=== PATIENT | female | born 1980 | race Caucasian/White ===

== ENCOUNTER 2016-12-20 05:15 | Inpatient (IN) | payer OTHER ==
--- NOTE | 2016-12-09 13:02 | GHP ---
[f rep st] PREOP HISTORY AND PHYSICAL DATE OF ADMISSION: 12/20/2016 SURGERY TO BE PERFORMED: Repeat lower transverse section. Scheduled date is er 2016, at 7:15 a.m. PREOPERATIVE DIAGNOSIS: Intrauterine at 39 weeks gestation with a history of lower transve rse section secondary to suspected macrosomia. Desires repeat section. HISTORY OF PRESENT ILLNESS: The patient is a 36-year-old, 4, para 2-0-0-1, with a last menst rual period of 03/21/2016 and an EDC of 12/26/2016. She has had good care at [facility] since the 1st trimester, registration at 9 weeks . She has a short interval. H er last baby was born in August of 2015 by section, a viable male, weight 8 pounds 10 ounces, elective section secondary to suspected macrosomia. That baby weighed 8 pounds 10 ounces. Because of the short interval between the section and this delivery, as well as the renu gerardo's choice, she desires a repeat lower transverse section for the delivery of this baby. Her EDC is 12/26/2016. We scheduled it at 39 weeks. Other risk factors include an increa sing BMI. The patient's most recent weight is 301 pounds. Her pre- weight was 283. The renu geradro also has had possible Zika exposure. She has extensive international travel for her job into [facility]. She had negative serum testing and normal ultrasounds. Most recent ultrasound, becaus e of the suspected macrosomia and the Zika, was December 01, 2016. At that point, baby was estimated to be 2775 g (or 36 percentile), normal anatomy, and LUZ was 17. PAST OBSTETRICAL HISTORY: Only the previously mentioned delivery in August of 2015, a viable male, 8 p ounds 10 ounces, elective primary for suspected macrosomia. PAST GYNECOLOGICAL HISTORY: She has normal menses, had menarche at age 17, interval every 30 days, r egular cycles. She was nursing when she conceived this baby. No history of abnormal Paps or STDs or any gynecological problems. PAST MEDICAL HISTORY: Significant for elevated BMI. PAST SURGICAL HISTORY: [place] tooth extraction, , and PE tubes as a child. ALLERGIES: She has no known drug allergies MEDICATIONS: Include vitamins, DHEA and folic acid. LABORATORY DATA: She is A positive, antibody negative, RPR nonreactive, rubella immune, hepatitis ne gative, HIV negative. Cystic fibrosis, SMA, fragile X negative. Verifi normal. Gonorrhea and chlam ydia negative. Pap normal. AFP normal. 1-hour GTT 116. GBS is negative. SOCIAL HISTORY: She is . She lives with her and her son. 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 She denies tobacco, alcohol, and drug use. FAMILY HISTORY: Paternal grandfather and maternal uncle have heart disease. Father has had a valve replacement. Maternal grandmother with chronic hypertension. Paternal grandmother had a stroke. Pa ternal uncle had brain cancer. Paternal grandfather had liver and lung cancer. That is all that is significant. REVIEW OF SYSTEMS: Negative 10-point review of systems, except for normal symptoms as abov e. OBJECTIVE: VITAL SIGNS: Blood pressure is 112/66, weight is 301 pounds. She has had an 18 pounds w eight gain in this . GENERAL: She is a well-developed, obese, white female in no acute dis tress. LUNGS: Clear to auscultation bilaterally. HEART: Regular rate and rhythm. No murmur. ABD OMEN: Gravid. Fundal height is 38. heart tones are 130s. PELVIS: Cervical exam is closed, 50%, and high. EXTREMITIES: Trace edema. Negative Homans sign. ASSESSMENT AND PLAN: A 36-year-old 2, para 1-0-0-1, who will be 39 weeks gestation on 2016, desires a repeat lower transverse section for delivery due to short interv al and patient choice. The patient was consented for the procedure today. She understood the risks and benefits, the risks including bleeding, infection, damage to internal organs, uterus, tubes, ovar ies, bowel, bladder, nerves, blood vessels, ureters, risk of injury, risk of hemorrhage requiri ng blood transfusion, hysterectomy, or . She understood these risks and benefits and agreed to proceed. /[id number]/MODL
[2016-12-20] MEDS ORDERED: CITRIC ACID/SODIUM CITRATE 30 ML UDCUP PO ONE ×2 (05:54→07:30)
[2016-12-20] MEDS ORDERED: ceFAZolin 2 GM/DEXTROSE 100 ML IV ONE ×2 (05:54→08:00)
[2016-12-20] MEDS ORDERED: LR 500 ML IV ONE ×2 (05:54→07:30)
[2016-12-20] MEDS ORDERED: TERBUTALINE SULFATE 1 MG/ML VIAL ONE (06:03)
[2016-12-20] MEDS ORDERED: MISOPROSTOL 200 MCG TAB ONE (06:03)
[2016-12-20] MEDS ORDERED: OXYTOCIN 10 UNIT/ML VIAL ONE (06:03)
[2016-12-20 06:09] LABS: PLATELET COUNT 186 10^3/uL (150-400)
[2016-12-20] MEDS: LR 1,000 ML IV SCH ×2 (06:15→14:06)
[2016-12-20] MEDS ORDERED: ceFAZolin 2 GM/SWFI 2 GM/20 ML SYR IVP ONE (07:30)
--- NOTE | 2016-12-20 07:31 | PREANESOB ---
Obstetric Pre-Anesthesia Info - General Info Proposed Procedure: Repeat C Section. : 2 Para: 1 ADRYAN: 12/26/16 Gestational Age: 39 week(s) and 1 day(s) - Info Status: Full Term Monitors: External FHR Baseline (bpm): 130 FHR Pattern: Reassuring - Labor Status Indications for Current Section: Elective/Repeat Labor Epidural: No Anesthesia ROS: Prior spinal for C Section. Prior general anesthesia for ear tubes as a child. Allergies/Adverse Reactions: Allergy/AdvReac Type Severity Reaction Status Date / Time No Known Allergies Allergy Verified 02/16/16 10:45 Home Medications: Medication Instructions Recorded AZITHROMYCIN [Z-PACK] 500 mg PO DAILY #1 packet 02/16/16 Ipratropium 0.06% Nasal [Atrovent 2 sprays EACHNARE QID #1 mdi 02/16/16 0.06% Nasal] Vitamin Tablet 1 tab PO DAILY 12/20/16 Visit Medications: Generic Name Dose Route Start Last Admin Trade Name Freq PRN Reason Stop Dose Admin Citric Acid/Sodium Citrate 30 ml 12/20/16 07:30 Bicitra PO 12/20/16 07:31 ONCE ONE Lactated Ringer's 1,000 mls @ 125 mls/hr 12/20/16 06:00 Lr IV 06/18/17 05:59 CONT JANNETH Cefazolin Sodium 2 gm in 20 mls @ 200 mls/hr 12/20/16 07:30 Cefazolin Syringe IVP 12/20/16 07:35 ONCALL ONE Lactated Ringer's 500 mls @ 0 mls/hr 12/20/16 07:30 Lactated Ringers IV 12/20/16 07:31 ONCE ONE As Directed Discontinued Medications Generic Name Dose Route Start Last Admin Trade Name Freq PRN Reason Stop Dose Admin Citric Acid/Sodium Citrate 30 ml 12/20/16 05:54 Bicitra PO 12/20/16 05:55 ONCALL ONE Ephedrine Sulfate Confirm 12/20/16 06:03 Ephedrine Sulfate Administered 12/20/16 06:04 Dose 50 mg .ROUTE .STK-MED ONE Cefazolin Sodium/Dextrose 100 mls @ 200 mls/hr 12/20/16 05:54 Ancef 2 Gm (Premix) IV 12/20/16 06:23 ONCALL ONE Protocol Lactated Ringer's 500 mls @ 0 mls/hr 12/20/16 05:54 Lr IV 12/20/16 05:55 ONCE ONE As Directed Misoprostol Confirm 12/20/16 06:03 Cytotec Administered 12/20/16 06:04 Dose 1,000 mcg .ROUTE .STK-MED ONE Oxytocin Confirm 12/20/16 06:03 Pitocin Administered 12/20/16 06:04 Dose 40 unit .ROUTE .STK-MED ONE Terbutaline Sulfate Confirm 12/20/16 06:03 Brethine Administered 12/20/16 06:04 Dose 1 mg .ROUTE .STK-MED ONE - Anesthesia History Response to Local Anesthetics: Normal Anesthesia & Operative History: No Prior Problems Family Anesthesia History: Negative - Social History Substance Use/Abuse: Denies - Vital Signs Blood Pressure: 106/86 Heart Rate: 98 Respiratory Rate: 18 Height/Weight (Nursing): Height 175.26 cm Weight 137.438 kg - Focused Exam Neck exam: FROM Mouth exam: normal dental/mouth exam Pulmonary: no respiratory distress Cardiovascular: regular rate and rhythym Labs: 12/20/16 06:00 Patient ABO/Rh A POSITIVE 12/20/16 06:00 - Plan Anesthetic Plan: SAB Consent Signed and on Chart: Yes Patient/Guardian Understands and Agrees to Plan: Yes
[2016-12-20] MEDS ORDERED: morphINE PF 5 MG/10 ML INJ ONE (07:40)
[2016-12-20] MEDS ORDERED: PHENYLEPHRINE HCL 100 MCG/ML SYR ONE (07:41)
[2016-12-20] MEDS ORDERED: OXYTOCIN 100 UNITS/10 ML VIAL ONE (07:41)
[2016-12-20] MEDS ORDERED: fentaNYL 100 MCG/2 ML INJ ONE (07:41)
[2016-12-20] MEDS ORDERED: DEXAMETHASONE 4 MG/ML VIAL ONE ×2 (07:41→08:47)
[2016-12-20] MEDS ORDERED: ONDANSETRON 4 MG/2 ML VIAL ONE ×2 (08:47)
[2016-12-20] MEDS ORDERED: ACETAMINOPHEN 325 MG TAB PO PRN (09:29)
[2016-12-20] MEDS ORDERED: SIMETHICONE 80 MG TAB CHEW PO PRN (09:29)
[2016-12-20] MEDS ORDERED: PROMETHAZINE HCL 25 MG/ML INJ IVP PRN (09:29)
[2016-12-20] MEDS ORDERED: DOCUSATE SODIUM 100 MG CAP PO PRN (09:29)
[2016-12-20] MEDS ORDERED: LACTULOSE 20 GM/30 ML UDCUP PO PRN (09:31)
[2016-12-20] MEDS ORDERED: MAGNESIUM HYDROXIDE 30 ML UDCUP PO PRN (09:31)
[2016-12-20] MEDS ORDERED: BISACODYL 10 MG SUPP PR PRN (09:31)
[2016-12-20] MEDS ORDERED: POLYETHYLENE GLYCOL 3350 17 GM PKT PO PRN (09:31)
--- NOTE | 2016-12-20 09:35 | OBDEL ---
Info Type: Repeat Presentation at Delivery: Vertex L&D Analgesia/Anesthesia Type: Spinal GBS+: No Intrapartum Medications: Generic Name Dose Route Start Last Admin Trade Name Freq PRN Reason Stop Dose Admin Lactated Ringer's 1,000 mls @ 125 mls/hr 12/20/16 06:00 12/20/16 06:15 Lr IV 06/18/17 05:59 1,000 mls CONT JANNETH Administration Discontinued Medications Generic Name Dose Route Start Last Admin Trade Name Freq PRN Reason Stop Dose Admin Citric Acid/Sodium Citrate 30 ml 12/20/16 05:54 12/20/16 07:41 Bicitra PO 12/20/16 05:55 Not Given ONCALL ONE Cefazolin Sodium/Dextrose 100 mls @ 200 mls/hr 12/20/16 05:54 12/20/16 07:40 Ancef 2 Gm (Premix) IV 12/20/16 06:23 100 mls ONCALL ONE Administration Protocol - Care Provider Manufacturing Mechanic/ADVERTISING ASSISTANT MANAGER: Chelsi Resendez Indications for Delivery: Elective Operative Report - Delivery Pre-op Diagnoses: IUP @ 39 weeks with history of LTCS desires repeat Post-op Diagnoses: same History of Prior Section: Yes Number of Prior Sections: 1 Nulliparous Prior to Delivery: No Indications for Prior Section: Other (Specify) (suspected macrosomia) Indications for Current Section: Elective/Repeat Procedure: Scheduled Surgeon: Aarti Almaguer Vegetable Worker: Shelbi Pina Anesthesiologist: Alejandro Dangelo Complications: None Findings: normal uterus, tubes and ovaries IV Fluid (ml): 3,300 EBL: 800 Data Burdick Delivery Date: 12/20/16 Delivery Time: 08:32 ADRYAN: 12/26/16 Gestational Age: 39 week(s) and 1 day(s) Sex of Infant: Female [place] Weight (gm): 3005.049 g Score (1 Min): 8 Score (5 Min): 8 ICD10 Worksheet Patient Problems: Problems Problem Status Onset delivery delivered Acute Morbid obesity Acute
--- NOTE | 2016-12-20 09:35 | OBDEL ---
Info Type: Repeat Presentation at Delivery: Vertex L&D Analgesia/Anesthesia Type: Spinal GBS+: No Intrapartum Medications: Generic Name Dose Route Start Last Admin Trade Name Freq PRN Reason Stop Dose Admin Lactated Ringer's 1,000 mls @ 125 mls/hr 12/20/16 06:00 12/20/16 06:15 Lr IV 06/18/17 05:59 1,000 mls CONT JANNETH Administration Discontinued Medications Generic Name Dose Route Start Last Admin Trade Name Freq PRN Reason Stop Dose Admin Citric Acid/Sodium Citrate 30 ml 12/20/16 05:54 12/20/16 07:41 Bicitra PO 12/20/16 05:55 Not Given ONCALL ONE Cefazolin Sodium/Dextrose 100 mls @ 200 mls/hr 12/20/16 05:54 12/20/16 07:40 Ancef 2 Gm (Premix) IV 12/20/16 06:23 100 mls ONCALL ONE Administration Protocol - Care Provider Environmental Health Nurse/MACHINE OPERATOR ASSISTANT: Chelsi Resendez Indications for Delivery: Elective Operative Report - Delivery Pre-op Diagnoses: IUP @ 39 weeks with history of LTCS desires repeat Post-op Diagnoses: same History of Prior Section: Yes Number of Prior Sections: 1 Nulliparous Prior to Delivery: No Indications for Prior Section: Other (Specify) (suspected macrosomia) Indications for Current Section: Elective/Repeat Procedure: Scheduled Surgeon: Aarti Almaguer Mma Fighter: Shelbi Pina Anesthesiologist: Alejandro Dangelo Complications: None Findings: normal uterus, tubes and ovaries IV Fluid (ml): 3,300 EBL: 800 Data Burdick Delivery Date: 12/20/16 Delivery Time: 08:32 ADRYAN: 12/26/16 Gestational Age: 39 week(s) and 1 day(s) Sex of Infant: Female [place] Weight (gm): 3005.049 g Score (1 Min): 8 Score (5 Min): 8 ICD10 Worksheet Patient Problems: Problems Problem Status Onset delivery delivered Acute Morbid obesity Acute
[2016-12-20] MEDS ORDERED: ONDANSETRON 4 MG/2 ML VIAL IVP PRN (09:36)
[2016-12-20] MEDS ORDERED: NALOXONE HCL 0.4 MG/ML INJ IVP PRN (09:36)
[2016-12-20] MEDS ORDERED: PHENYLEPHRINE HCL 100 MCG/ML SYR IVP PRN (09:36)
--- NOTE | 2016-12-20 09:36 | POSTANESTH ---
Post Anesthetic Evaluation Cardiovascular Status: Normal, Stable, Similar to Pre-Op Cond Respiratory Status: Normal, Stable, Similar to Pre-op Cond. Level of Consciousness/Mental Status: Can Participate in Eval, Alert and Oriented Pain Control: Adequate, Prn Tx Ordered Nausea/Vomiting Control: Adequate, Prn Tx Ordered Complications Possibly Related to Anesthesia: None Noted
[2016-12-20] MEDS ORDERED: SCOPOLAMINE HYDROBROMIDE 1 MG/3 DAYS PATCH TD ONE (09:39)
--- NOTE | 2016-12-20 11:44 | GOP ---
[f rep st] OPERATIVE REPORT DATE OF OPERATION: 12/20/2016 SURGEON: Aarti Almaguer MD APPRENTICESHIP CONSULTANT: Shelbi Pina CNM. Betina Su [facility]. ANESTHESIA: Spinal anesthesia. ANESTHESIOLOGIST: Alejandro Dangelo MD PREOPERATIVE DIAGNOSIS: Intrauterine at 39 weeks' gestation with a history of prior low tr ansverse section; desires repeat. POSTOPERATIVE DIAGNOSIS: Intrauterine at 39 weeks' gestation with a history of prior low t ransverse section; desires repeat. PROCEDURE PERFORMED: Repeat lower transverse section. FINDINGS: Viable female, 's of 8 and 8, weight of 6 pounds 10 ounces. ESTIMATED BLOOD LOSS: (For the procedure) 800 cc. DESCRIPTION OF PROCEDURE: Patient was taken to the operating room where she was given spinal anesthe natan without difficulty. She was prepped and draped in the dorsal supine position with a leftward til t, and a Suresh catheter was placed in her bladder. After adequate anesthesia was assured, a transver se skin incision was made in the previous scar, and the incision was carried down to the un derlying layer of fascia. Fascia was incised in the midline. Fascial incision was extended laterall y with Calhoun scissors. Superior aspect of the fascial incision was grasped with Brandy clamps and silva vated, and the rectus muscles were dissected off sharply. Inferior aspect of the fascial incision wa s grasped with Brandy clamps and elevated, and the rectus muscles were dissected off sharply. Rectus muscles were in the midline. Peritoneum was entered bluntly. Peritoneal incision was ext ended superiorly and inferiorly with good visualization of bladder. Bladder blade was inserted. The vesicouterine peritoneum was grasped with the pickups and entered sharply with Metzenbaum scissors. The incision was extended laterally, and a bladder flap was created digitally. The uterus was incis ed with a knife, and the incision was extended laterally with bandage scissors. There was clear amni otic fluid upon entry to the amniotic sac. The baby was delivered atraumatically. The mouth and nos e were bulb suctioned. We delayed cord clamping for 1 minute, and the cord was then clamped and cut. The was handed off to the waiting nurse practitioners. Cord bloods were sent. The placenta was removed manually. The uterus was exteriorized and cleared of all clots and debris. Th e uterine incision was repaired with 0 Vicryl in a running locked fashion. A second imbricating laye r of suture was performed with 0 Vicryl. There were small areas of bleeding which were made hemostat ic with [id number] sutures of 0 Vicryl, and good hemostasis was assured. The uterus was returne d to the abdomen. Gutters were cleared of all clots and debris. Reinspection of the uterine incisio n revealed small areas of oozing along the bladder flap, and these were cauterized and we used Abida for assured hemostasis in that area. The rectus muscles were then approximated with 2-0 Vicryl in a n inverted mattress fashion. The fascia was closed with #1 Vicryl in a running fashion. Subcutaneou s layer was closed with 2-0 Vicryl, and skin was closed with 4-0 Vicryl. Patient tolerated the proce dure well. Sponge, lap, needle, and instrument counts were correct x2. Patient went to the recovery room in good condition. INDICATIONS FOR PROCEDURE: The patient is a 36-year-old 4, para 1-0-0-1, who is at 39 weeks' gestation on 12/20/2016, with an EDC of 12/26/2016. She had a history of lower transverse section with G1 secondary to suspected macrosomia, and she decided she desires a repeat lower transve rse section due to short interval; that baby was born in August 2015, and this is less t palomino 18 months from that delivery. Patient is concerned about possible increased risk of a uterine ru pture with spontaneous labor and elected to have a section. She was consented for the proce dure. She understood the risks and benefits: The risks including bleeding, infection, damage to int ernal organs (uterus, tubes, ovaries, bowel, bladder, nerves, blood vessels, ureters), risk of injury, risk of hemorrhage requiring blood transfusion, hysterectomy, or . She understood these risks and benefits and agreed to proceed. IV FLUIDS: 3300 cc. URINE OUTPUT: 300 cc. /[id number]/MODL
[2016-12-20] MEDS: KETOROLAC 30 MG/1 ML SDV IVP PRN ×2 (12:28→18:21)
[2016-12-21] MEDS: KETOROLAC 30 MG/1 ML SDV IVP PRN ×2 (00:05→05:50)
[2016-12-21] MEDS: SENNOSIDES/DOCUSATE SODIUM TAB PO SCH ×3 (00:05→19:36)
[2016-12-21] MEDS ORDERED: PATCH REMOVAL 1 EA PATCH TD ONE (09:40)
--- NOTE | 2016-12-21 13:09 | OBPP ---
Progress Note Assessment/Plan: Assessment: 36 yo POD#1 s/p RCD. Doing OK. Plan: 1. Routine Post-op care. 2. Encourage ambulation. Up to shower. 3. Post-op anemia: start PO iron supplementation. 12/21/16 13:05 Subjective/ Course: 12/21/16 13:07 Patient feels good. Pain is well-controlled with PO medication. She is ambulating to BR. She is voiding spontaneously. She reports moderate lochia. She is without difficulty. 12/21/16 13:10 Admits to passing flatus this AM Objective: 12/21/16 06:00 Patient ABO/Rh A POSITIVE 12/20/16 06:00 Temp Pulse Resp BP Pulse Ox 37.0 C 77 20 100/62 98 12/21/16 08:00 12/21/16 08:00 12/21/16 06:15 12/21/16 08:00 12/21/16 08:00 General: NAD Lungs: clear in all hay Heart: RRR Abdomen: soft, appropriately tender, bowel sounds present, incision is covered with dry clean bandage Fundus: firm, below umbilicus Extremities: no excessive edema Uterine Position/Fundal Height: Umbilicus -1 Uterine Tone: Firm
[2016-12-21] MEDS: IBUPROFEN 600 MG TAB PO PRN ×2 (13:15→19:36)
[2016-12-21] MEDS: FERROUS SULFATE 325 MG TAB PO SCH (13:35)
[2016-12-21] MEDS: HYDROCODONE/APAP 5/325 TAB PO PRN (21:32)
[2016-12-22] MEDS: IBUPROFEN 600 MG TAB PO PRN ×4 (01:30→21:36)
[2016-12-22] MEDS: HYDROCODONE/APAP 5/325 TAB PO PRN ×6 (01:30→23:34)
--- NOTE | 2016-12-22 09:05 | OBPP ---
Progress Note Assessment/Plan: Assessment: [id number] s/p repeat C/S POD#2 post op anemia Plan: routine post op care ambulate plan to d/c home tomorrow 12/22/16 09:01 Subjective/ Course: 12/21/16 13:07 Patient feels good. Pain is well-controlled with PO medication. She is ambulating to BR. She is voiding spontaneously. She reports moderate lochia. She is without difficulty. 12/21/16 13:10 Admits to passing flatus this AM 12/22/16 09:03 Pt doing well, no complaints; reports min bleeding, no clots. reports min cramping. She is without difficulty. She is passing gas, no BM yet. She is voiding without difficulty. Objective: 12/21/16 06:00 Patient ABO/Rh A POSITIVE 12/20/16 06:00 Temp Pulse Resp BP Pulse Ox 36.0 C 79 16 128/79 H 96 12/22/16 05:22 12/22/16 05:22 12/22/16 05:22 12/22/16 05:22 12/22/16 05:22 Exam: constitutional: WNWF, A&Ox3 Heart: RRR Chest: CTA-B Abdomen: soft, nontender incision: C/D/I, steristrips intact Uterus: firm @ U lochia: min rubra Extremities: 1+pedal edema, negative yariel's sign Uterine Position/Fundal Height: At Umbilicus, Midline Uterine Tone: Firm
[2016-12-22] MEDS: FERROUS SULFATE 325 MG TAB PO SCH (09:18)
[2016-12-22] MEDS: SENNOSIDES/DOCUSATE SODIUM TAB PO SCH ×2 (09:18→19:36)
[2016-12-23 00:13] VITALS: RESP 16; O2SAT 95
[2016-12-23] MEDS: IBUPROFEN 600 MG TAB PO PRN ×2 (03:28→09:40)
[2016-12-23] MEDS: HYDROCODONE/APAP 5/325 TAB PO PRN ×3 (03:29→11:37)
[2016-12-23] MEDS: FERROUS SULFATE 325 MG TAB PO SCH (07:40)
[2016-12-23] MEDS: SENNOSIDES/DOCUSATE SODIUM TAB PO SCH (07:40)
[2016-12-23 09:51] VITALS: BP 132/91; PULSE 68; TEMP 98.3
--- NOTE | 2016-12-23 16:11 | OBPP ---
Progress Note Assessment/Plan: Assessment: 36 yo POD#1 s/p RCD. Doing OK. Plan: 1. Routine Post-op care. 2. Encourage ambulation. Up to shower. 3. Post-op anemia: start PO iron supplementation. 12/21/16 13:05 12/23/16 16:08 36 yo POD#3 s/p RCD doing well. Desires DC home. 12/23/16 16:08 Plan will be to DC home today. Subjective/ Course: 12/21/16 13:07 Patient feels good. Pain is well-controlled with PO medication. She is ambulating to BR. She is voiding spontaneously. She reports moderate lochia. She is without difficulty. 12/21/16 13:10 Admits to passing flatus this AM 12/22/16 09:03 Pt doing well, no complaints; reports min bleeding, no clots. reports min cramping. She is without difficulty. She is passing gas, no BM yet. She is voiding without difficulty. 12/23/16 16:08 Patient is ambulating, tolerating pain with PO ibuprofen. Reports minimal lochia. . Desires DC home. Objective: 12/21/16 06:00 Patient ABO/Rh A POSITIVE 12/20/16 06:00 Temp Pulse Resp BP Pulse Ox 36.8 C 68 16 132/91 H 95 12/23/16 08:00 12/23/16 08:00 12/23/16 08:00 12/23/16 08:00 12/22/16 20:00 NAD CTAB RRR Abdomen soft/appropriately tender/ff and below umbilicus/incision is intact, clean and dry Extremities (bilateral): no excessive edema Uterine Position/Fundal Height: Umbilicus -2 Uterine Tone: Firm
--- NOTE | 2016-12-23 16:11 | OBGCSDC ---
General Delivery Information - General Info : 2 Para: 2 Abortions: 0 Type: Repeat L&D Analgesia/Anesthesia Type: Spinal Admission Date: 12/20/16 Labs: Patient ABO/Rh A POSITIVE 12/20/16 06:00 Hct 29.0 % (38.0-47.0) L 12/21/16 06:00 - Hospital Course : 12/21/16 13:07 Patient feels good. Pain is well-controlled with PO medication. She is ambulating to BR. She is voiding spontaneously. She reports moderate lochia. She is without difficulty. 12/21/16 13:10 Admits to passing flatus this AM 12/22/16 09:03 Pt doing well, no complaints; reports min bleeding, no clots. reports min cramping. She is without difficulty. She is passing gas, no BM yet. She is voiding without difficulty. 12/23/16 16:08 Patient is ambulating, tolerating pain with PO ibuprofen. Reports minimal lochia. . Desires DC home. - Delivery Providers Surgeon: Aarti Almaguer Paint Prep Technician: Shelbi Pina Anesthesiologist: Alejandro Dangelo - Delivery Number of Prior Sections: 1 Indications for Current Section: Elective/Repeat Surgical Procedures: Scheduled Intra-op Complications: None EBL: 800 Data Burdick Delivery Date: 12/20/16 Delivery Time: 08:32 ADRYAN: 12/26/16 Gestational Age: 39 week(s) and 4 day(s) Sex of : Female Weight (gm): 3008 g Score (1 Min): 8 Score (5 Min): 8 Discharge Information - Discharge Information Prescriptions: Hydrocodone/APAP 5/325 [[place] 5/325 (*)] 1 - 2 tab PO Q4HRS PRN #30 tab PRN Reason: Pain, Moderate Ibuprofen [Motrin (*)] 600 mg PO Q6HRS PRN #40 tab PRN Reason: Inflammation Ferrous Sulfate [Ferrous Sulf 325 MG (*)] 325 mg PO DAILY #30 tab Condition: Good Instruction/Follow Up: Two Weeks, Four Weeks, Six Weeks
== END 2016-12-23 13:45 | disposition home or self-care (01) | DRG 765 ==
LOC: FLD 05:15 → FOB 11:14
PROVIDERS: ADMIT Obstetrics & Gynecology; ATTEND Obstetrics & Gynecology
PROC: 10D00Z1 Extraction of Products of Conception, Low, Open Approach (ICD-10-PCS; principal; 2016-12-20)
DX: O34.211 Maternal care for low transverse scar from previous cesarean delivery (principal); Z37.0 Single live birth; Z3A.39 39 weeks gestation of pregnancy; O99.03 Anemia complicating the puerperium; D62 Acute posthemorrhagic anemia
CPT/HCPCS: J0690; J1100; J1885; J2274; J2370; J2405; J2550; J2590; J3010; J3105